=== PATIENT | female | born 1970 | race Asian ===

== ENCOUNTER 2024-04-24 09:57 | Emergency (ER) | payer BC, SELFPAY ==
[2024-04-24] VITALS (8 sets, daily range): BP systolic 106–141; BP diastolic 54–103; BMI 36.6
[2024-04-24 11:01] LABS: % Basophils 0.2 % (0-2); % Immature Granulocytes 0.2 % (0-0.5); % Lymphocytes 24.8 % (20.5-51.1); % Monocytes 9.7 % (1.7-9.3); % Neutrophils 63.1 % (42.2-75.2); Absolute Eosinophils 0.1 10^3/uL (0-0.7); Absolute Monocytes 0.4 10^3/uL (0.1-0.6); Absolute Neutrophils 2.5 10^3/uL (1.4-6.5); Hemoglobin 13.4 g/dL (12.0-16.0); Mean Corp Hgb Conc. 35.3 g/dL (33.0-37.0); Mean Corpuscular Hgb 32.1 pg (27.0-31.0); Mean Corpuscular Volume 90.9 fL (81.0-99.0); Mean Platelet Volume 10.2 fL (7.4-10.4); Nucleated Red Blood Cells % 0 %; Platelet Count 158 10^3/uL (130-400); Red Blood Cell Count 4.18 10^6/uL (4.20-5.40); Red Cell Dist. Width 11.9 % (11.5-14.5)
[2024-04-24 11:18] LABS: APTT 27.6 Sec (23.4-35.0); INR 1.09; PT 13.9 Sec (11.4-14.6)
[2024-04-24 11:22] LABS: ALT (SGPT) 33 U/L (0-35); AST (SGOT) 34 U/L (14-36); Albumin 4.4 g/dl (3.5-5.0); Alkaline Phosphatase 82 U/L (38-126); Blood Urea Nitrogen 14 mg/dl (7-17); Calcium 9.4 mg/dl (8.4-10.2); Carbon Dioxide 25 mmol/L (22-30); Chloride 103 mmol/L (98-107); Estimated Creatinine Clearance 75 ml/min; Glucose 107 mg/dl (70-99); Potassium 3.6 mmol/L (3.5-5.1); Sodium 143 mmol/L (135-145); Total Bilirubin 0.7 mg/dl (0.2-1.3); Total Protein 6.4 g/dl (6.3-8.2); eGFR > 60.00
[2024-04-24] MEDS: BENADRYL 50 MG IV (12:11)
[2024-04-24] MEDS: SOLU-CORTEF 200 MG IV (12:11)
--- NOTE | 2024-04-24 12:51 | EDRN ---
CT process maintenance technician came to this RN and informed her that Dr. Bucio will have to speak w/ radiologist prior to pt able to have CT as pt's reaction to contrast dye is anaphalaxis and pt has had no prior CT w/ dye here. This RN informd Dr. Bucio.
--- NOTE | 2024-04-24 13:17 | ED.GENMED ---
History of Present Illness
General
Chief Complaint: Post Operative Problem(s)
Source: patient
Exam Limitations: none
Time Seen by Provider: 04/24/24 10:30
Nursing documentation reviewed up to this point in time: agreed with
History of Present Illness
History of Present Illness:
53-year-old female with a past medical history of stroke secondary to PFO who presents to the emergency department for evaluation of right groin pain and bruising after cardiac cath. Patient had closure of her PFO at [facility] 04/21/2024,
required cannulization of left and right groin for procedure. She says that she had some minor bruising on the left side but on the right side she has had significant amount of bruising since the procedure and today bruising and swelling increased
and she is having pain in the groin. Came to the ER for evaluation. She denies any chest pain, shortness breath, dizziness. She is on Plavix no other blood thinners.
Review of Systems
Review of Systems
All Other Systems: ROS reviewed and negative except as documented in HPI and ROS
Respiratory: Denies trouble breathing
Cardiac: Denies chest pain
ABD/GI: Denies abdominal pain
: Denies flank pain
Musculoskeletal: Reports other (Swelling, bruising, pain right groin); Denies neck pain or back pain
Neurological: Denies dizzy or headache
Phy Exam
Physical Exam
Physical Exam:
General: Awake, alert, oriented x3; no acute distress
Head: Normocephalic, atraumatic
Eyes: Conjunctiva normal
Throat: Airway intact, handling secretions
Neck: Trachea midline, supple without meningismus
Lungs: Breathing comfortably no distress
Heart: Regular rate
Abd: Soft, non distended, nontender
Neuro: Patient has stutter which she says is baseline, resting; no neurologic deficits noted
Skin: no rash
Extremities: No edema in extremities, equal pulses in all extremities�specifically she has a strong palpable right femoral, DP, PT pulse; she has no palpable pseudoaneurysm in the right groin; she does have ecchymosis in the right inguinal region
extending up towards the pubic symphysis and some localized swelling; minor ecchymosis no hematoma noted left groin and good pulses throughout left lower extremity
Scores
Heart Failure Risk
Heart Failure Risk Score: Not Applicable
Heart Score for Chest Pain Patients
STEMI patient?: Not applicable
Withdrawal Assessment of Alcohol
Withdrawal Assessment Completed?: Not applicable
Course
Orders/Labs/Results
Orders:
Orders
04/24/24 10:14
Electrocardiogram (*1) Urgent
Reason for Study: Other
Other Reason for Exam: post op problems
EKG- Treatment ONCE
04/24/24 10:54
Type+Screen Urgent
Complete Blood Count/With Diff Urgent
Comprehensive Metabolic Panel Urgent
PTT Urgent
Prothrombin Time Urgent
04/24/24 11:34
ABO2 Urgent
BBK Wristband Number:
Associate notified that ABO2 has been ordered: [id number]
Date: 04/24/24
Time: 11:12
Coal Wheeler ID: [id number]
04/24/24 11:41
Diphenhydramine [Benadryl] 50 mg .ROUTE .STK-MED ONE
Hydrocortisone Sod Succinate [Solu-Cortef] 200 mg .ROUTE .STK-MED ONE
04/24/24 12:03
Diphenhydramine [Benadryl] 50 mg IV NOW STA
Hydrocortisone Sod Succinate [Solu-Cortef] 200 mg IV NOW STA
04/24/24 13:11
US Groin (vascular exam) RT Urgent
Comment:
Reason For Exam: right groin swelling s/p cath
04/24/24 14:57
Urinalysis Reflex To Culture Urgent
Date Specimen was Collected: 04/24/24
Time Specimen was Collected: 14:54
Urine Microscopic Reflex Cult Urgent
Urine Culture Urgent
MARIO Source: U
Specimen Description:
Date Specimen was Collected: 04/24/24
Time Specimen was Collected: 14:54
Abnormal Lab Results
04/24/24 04/24/24
10:54 14:57
WBC 4.0 L 10^3/uL
(4.8-10.8)
RBC 4.18 L 10^6/uL
(4.20-5.40)
MCH 32.1 H pg
(27.0-31.0)
Absolute Lymphs (auto) 1.0 L 10^3/uL
(1.2-3.4)
Monocytes % 9.7 H %
(1.7-9.3)
Glucose 107 H mg/dl
(70-99)
Leukocyte Esterase Rfl 1+ A
(Negative)
Urine WBC (Reflex) 11-15 A /HPF
(0-5)
Urine Bacteria (Reflex) Few A
(Negative)
04/24/24 10:54
04/24/24 10:54
Vital Signs
Initial and Last Documented VS:
Initial Vital Signs
Pulse Resp
67 16
04/24/24 10:33 04/24/24 10:33
Last Documented Vital Signs
Pulse Resp BP Pulse Ox
61 17 112/65 97
04/24/24 14:15 04/24/24 14:15 04/24/24 14:13 04/24/24 14:15
MDM/Problems Addressed
Differential Diagnosis Includes:
Pseudoaneurysm, hematoma
MDM/Problems Addressed:
53-year-old female presents for evaluation of right groin swelling, bruising, pain status post catheterization procedure for PFO repair on 04/21/2024 at home. Vital signs normal. Exam as above. Will place an IV check labs including CBC and CMP,
coags, type and screen. Discussed with radiology�will start with vascular ultrasound right groin to evaluate for hematoma, pseudoaneurysm. Reassess after the above.
Initial labs reviewed: CBC unremarkable�notably normal hemoglobin. CMP unremarkable. Awaiting imaging.
Ultrasound called back: Negative for expanding hematoma, pseudoaneurysm, fistula. Labs reviewed and her hemoglobin is normal, CMP no medically significant abnormalities. INR normal. On clinical reassessment patient has had no change in her
exam/no increased swelling or bruising in the groin. Her vitals have been stable. Suspect minor postoperative ecchymosis/hematoma. Stable for discharge. Advised to monitor very closely and return with any changes. Exam is requesting we check
urinalysis prior to discharge because she says she has noticed some mild dysuria recently�will check a urinalysis. She is also requesting a prescription for nystatin swish and spit for thrush�she has asthma and takes inhaler and says that she has
recurrent thrush.
UA is some bacteria some squamous cells some pyuria�likely some degree of contamination but given that she is having symptoms will cover with Macrobid. Prescribed nystatin swish and spit for mild thrush related to asthma inhaler. Spoke about
return precautions regarding her presenting complaint which was groin swelling postoperatively. She is comfortable with this plan and indicated understanding. All questions answered.
Chronic conditions affecting care:
PFO require repair�presents with postoperative complication
*Radiology
Radiology exam reviewed: radiology read reviewed
*Pulse Oximetry
Patient hypoxic: no
*EKG
Interpreted by ED Provider?: Yes
Heart Rate: 85
Rate: normal
Rhythm: sinus
[place]: normal axis
Interval: normal interval
QRS Pattern: other (Left posterior fascicular block)
*Critical Care Note
Total Time (30-74mins, 75-104mins- exclusive of procedures): Not Applicable
Data Reviewed
Review of Other/Old Records Reveals: Records (Reviewed external records from [place] provided by patient)
Source: patient
Patient Management
Discussion with other providers: Radiologist (Discussed with radiologist)
ED Attending Note
-
Portions of this chart may have been created with voice recognition software.� Occasional wrong word or��sound alike� substitutions may have occurred due to the inherent limitations of voice recognition software.
Discharge Plan
Departure
Patient Disposition: Home (Routine Discharge)
Date of Disposition: 04/24/24
Time of Disposition: 15:27
Patient with high blood pressure during this ER visit?: No
Discharge Problem:
Postoperative hematoma, Thrush, UTI (urinary tract infection)
Instructions: Postoperative Pain (DC), Urinary Tract Infection, Adult ED, Hematoma
Prescriptions:
New
nystatin 100,000 unit/mL suspension
400,000 unit PO Q6H 7 Days Qty: 112 0RF
nitrofurantoin monohyd/m-cryst [Macrobid] 100 mg capsule
100 mg PO BID 5 Days Qty: 10 0RF
No Action
sucralfate [Carafate] 100 mg/mL suspension
10 ml PO TID Qty: 200 0RF
Referrals:
UNKNOWN - PT DOES,NOT KNOW [Family Provider] -
Activity Restrictions/Additional Instructions:
You should monitor your groin and if you notice increasing swelling you should return immediately to be reassessed. Otherwise you should apply ice 3-5 times a day for 15 minutes at a time. You should get plenty of rest and try to keep your leg
elevated. 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
Thank you for visiting the Emergency Department at [facility].
1. Please schedule a follow up appointment as directed. Call first thing tomorrow morning to make an appointment.
2. If indicated, please take your medications as instructed and indicated on discharge paperwork.
3. If any of your symptoms do not improve, or persist, or become more severe within 6-12 hours, please return to the emergency department for further care.
4. Please return to the emergency department if you develop a headache, neck pain/stiffness, fever greater than 100.4F, chest pain, shortness of breath, persistent nausea, vomiting, slurred speech, difficulty walking, numbness/tingling, weakness,
signs of infection or any other symptoms that are worrisome to you.
Please call [phone] if you have any questions.
Interventions
Interventions:
*Risk Screen - Suicide Last Done: 04/24/24 10:06
*General Assessment Last Done: 04/24/24 10:06
*Neglect/Abuse Screening Last Done: 04/24/24 10:06
ED- Fall Risk Assessment Last Done: 04/24/24 11:01
*ED COVID-19 Vaccine History Last Done: 04/24/24 11:00
ED-Skin Assessment Last Done: 04/24/24 11:02
Discharge Date and Time
Print Language: SAMI
--- NOTE | 2024-04-24 14:21 | EDRN ---
Pt states her reaction to CT Dye was inability to breathe, anaphalaxis. Pt stated that she has had the dye twice prior w/out any reaction d/t pre-medication. Pt also asked about eating and was advised not to eat or drink at this time. Pt asking
about KVO IV and was just saying that she has burning in her perineum (questioning that she may have a UTI). Dr. Bucio said he will be down to speak w/ pt when informed of pt's concerns and pt was updated likewise. WIll request a urine sample at
this time from the next time she voids.
--- NOTE | 2024-04-24 14:26 | EDRN ---
Urine spec kit placed in BR after pt given instructions on collection of mid stream, clean catch urine.
[2024-04-24 15:13] LABS: Urine Albumin Negative (Neg - Trace); Urine Bilirubin Negative (Negative); Urine Character Clear (Clear); Urine Color Yellow; Urine Glucose Negative (Negative); Urine Ketone Negative (Negative); Urine Leukocyte 1+ (Negative); Urine Nitrite Negative (Negative); Urine Occult Blood Negative (Negative); Urine Urobilinogen Negative (Neg - 1+); Urine pH 6.5 (5.0-9.0)
[2024-04-24 15:17] LABS: Urine Bacteria Few (Negative); Urine Red Blood Cell 0-2 /HPF (0-2)
--- NOTE | 2024-04-24 15:43 | EDRN ---
Pt to go to [facility] to await a ride. Pt is calling family to assist her to get a ride home.
--- NOTE | 2024-04-24 16:01 | EDRN ---
Pt to [facility] at this time after report given to Tamika ELDRIDGE via w/c as she cannot sit up, needs to lie down. Pt was placed on portable oxygen. Pt has a friend and daughter coming to pick her up.
== END 2024-04-24 16:33 | disposition home or self-care (01) ==
LOC: EMR 09:57
PROVIDERS: EMERGENCY PHYSICIAN Emergency Medicine
DX: N39.0 Urinary tract infection, site not specified (principal); B37.9 Candidiasis, unspecified; L76.32 Postprocedural hematoma of skin and subcutaneous tissue following other procedure; Y84.0 Cardiac catheterization as the cause of abnormal reaction of the patient, or of later complication, without mention of misadventure at the time of the procedure; Y71.3 Surgical instruments, materials and cardiovascular devices (including sutures) associated with adverse incidents
CPT/HCPCS: 99285; 96374; 96375; 80053; 81003; 81015; 85025; 85610; 85730; 86850; 86900; 86901; 87086; 93005; 93926